=== PATIENT | male | born 1955 | race Caucasian/White ===

== ENCOUNTER → 2020-07-21 | Outpatient (CLI) | payer MEDICARE, OTHER ==
[~2020-07-21] MED LIST: ASPIRIN CHEWABL81 MG PO; BENZONATATE200 MG PO; HYDROCODON-ACE1 EAC4 PO; LIPITOR TAB 2020 MG PO; LODINE CAP 300300 MG PO; LOPRESSOR50 MG PO; MOBIC15 MG PO; NEURONTIN 400400 MG PO; NORCO 5-325 TA1 EACH PO; NORVASC 5 MG TAB5 MG PO; PROTONIX40 MG PO; TRICOR48 MG PO; Voltaren Gel 1% TOP; ZOFRAN ODT 4 MG4 MG PO; ZYRTEC10 M3 PO
== END ==
LOC: EXRD 10:28
DX: M54.5 Low back pain (principal); M47.816 Spondylosis without myelopathy or radiculopathy, lumbar region; M43.8X6 Other specified deforming dorsopathies, lumbar region
CPT/HCPCS: 72110

== ENCOUNTER 2020-09-18 23:55 | Emergency (ER) | payer MEDICARE, OTHER ==
[~2020-09-18 23:55] MED LIST changes: -HYDROCODON-ACE1 EAC4 PO
[2020-09-19 01:29] LABS: HEMOGLOBIN 13.7 gm/dl (14.0-17.5); RED BLOOD COUNT 4.17 M/UL (4.20-5.50); WHITE BLOOD COUNT 4.7 K/UL (4.5-11.0)
[2020-09-19 01:58] LABS: BUN/CREATININE RATIO 20 (0-10)
== END 2020-09-19 05:04 | disposition home or self-care (01) ==
LOC: ER1 23:55
PROVIDERS: Family Medicine
DX: S02.2XXA Fracture of nasal bones, initial encounter for closed fracture (principal); S32.019A Unspecified fracture of first lumbar vertebra, initial encounter for closed fracture; S22.32XA Fracture of one rib, left side, initial encounter for closed fracture; S22.31XG Fracture of one rib, right side, subsequent encounter for fracture with delayed healing; S00.83XA Contusion of other part of head, initial encounter; F10.129 Alcohol abuse with intoxication, unspecified; Y90.8 Blood alcohol level of 240 mg/100 ml or more; M47.812 Spondylosis without myelopathy or radiculopathy, cervical region; D69.6 Thrombocytopenia, unspecified; W01.10XA Fall on same level from slipping, tripping and stumbling with subsequent striking against unspecified object, initial encounter
CPT/HCPCS: 70450; 70486; 71045; 72125; 72128; 72131; 80053; 82550; 82553; 83874; 84484; 85025; 85610; 93005; 99284; G0480

== ENCOUNTER 2020-12-01 17:41 | Emergency (ER) | payer MEDICARE, OTHER ==
[2020-12-01] MEDS ORDERED: HYDROCODON-ACE1 EAC4 PO (20:08)
== END 2020-12-01 20:25 | disposition home or self-care (01) ==
LOC: ER1 17:41
DX: S22.32XA Fracture of one rib, left side, initial encounter for closed fracture (principal); I10 Essential (primary) hypertension; M19.90 Unspecified osteoarthritis, unspecified site; W18.30XA Fall on same level, unspecified, initial encounter; Y93.01 Activity, walking, marching and hiking
CPT/HCPCS: 71111; 73590; 99283

== ENCOUNTER → 2020-12-24 | Outpatient (CLI) | payer MEDICARE, OTHER ==
[~2020-12-24] MED LIST changes: +HYDROCODON-ACE1 EAC4 PO
[2020-12-24 10:44] LABS: RED BLOOD COUNT 4.28 M/UL (4.20-5.50); WHITE BLOOD COUNT 3.6 K/UL (4.5-11.0)
[2020-12-24 11:32] LABS: BUN/CREATININE RATIO 16 (0-10)
== END ==
LOC: LAB 09:08
PROVIDERS: Family Medicine
DX: E78.2 Mixed hyperlipidemia (principal); I10 Essential (primary) hypertension
CPT/HCPCS: 36415; 80053; 80061; 85027

== ENCOUNTER 2021-08-05 15:39 | Emergency (ER) | payer MEDICARE, OTHER | END 2021-08-05 17:51 | disposition home or self-care (01) | LOC: ER1 15:39 | DX: M25.551 Pain in right hip (principal); M25.561 Pain in right knee; I10 Essential (primary) hypertension; Z95.0 Presence of cardiac pacemaker; W01.0XXA Fall on same level from slipping, tripping and stumbling without subsequent striking against object, initial encounter; Y92.009 Unspecified place in unspecified non-institutional (private) residence as the place of occurrence of the external cause | CPT/HCPCS: 73502; 73564; 99283 ==

== ENCOUNTER 2021-10-06 06:43 | Emergency (ER) | payer MEDICARE, OTHER ==
[2021-10-06 08:04] LABS: HEMOGLOBIN 12.7 gm/dl (14.0-17.5); RED BLOOD COUNT 3.88 M/UL (4.20-5.50); WHITE BLOOD COUNT 5.7 K/UL (4.5-11.0)
[2021-10-06 08:15] LABS: BUN/CREATININE RATIO 16 (0-10)
== END 2021-10-06 12:17 | disposition home or self-care (01) ==
LOC: ER1 06:43
PROVIDERS: Emergency Medicine
DX: R07.89 Other chest pain (principal); J44.9 Chronic obstructive pulmonary disease, unspecified; Z20.822 Contact with and (suspected) exposure to COVID-19
CPT/HCPCS: 0240U; 71045; 80053; 82550; 82553; 83880; 84484; 85025; 87081; 87880; 93005; 94664; 94760; 96374; 96375; 99285; J1100; J1885; J2765

== ENCOUNTER 2022-01-28 12:21 | Emergency (ER) | payer MEDICARE, OTHER | END 2022-01-28 16:18 | disposition home or self-care (01) | LOC: ER1 12:21 | DX: S30.0XXA Contusion of lower back and pelvis, initial encounter (principal); K63.89 Other specified diseases of intestine; I25.2 Old myocardial infarction; I10 Essential (primary) hypertension; E78.5 Hyperlipidemia, unspecified; W19.XXXA Unspecified fall, initial encounter | CPT/HCPCS: 72192; 73502; 99284 ==

== ENCOUNTER 2022-02-02 18:16 | Emergency (ER) | payer MEDICARE, OTHER ==
[2022-02-03] MEDS ORDERED: CEPHALEXIN500 MG PO (00:24)
[2022-02-03] MEDS ORDERED: BACITRACIN28.4 GM TP (00:24)
[2022-02-03] MEDS ORDERED: BACTRIM DS TAB1 EACH PO (00:24)
== END 2022-02-02 23:55 | disposition home or self-care (01) ==
LOC: ER1 18:16
DX: S02.2XXA Fracture of nasal bones, initial encounter for closed fracture (principal); S01.21XA Laceration without foreign body of nose, initial encounter; E78.5 Hyperlipidemia, unspecified; W01.198A Fall on same level from slipping, tripping and stumbling with subsequent striking against other object, initial encounter; Y92.009 Unspecified place in unspecified non-institutional (private) residence as the place of occurrence of the external cause; Z23 Encounter for immunization
CPT/HCPCS: 12013; 70450; 70486; 90471; 90715; 99283